=== PATIENT | female | born 1995 | race Caucasian/White ===

== ENCOUNTER 2017-02-18 12:24 | Emergency (ER) | payer OTHER ==
[~2017-02-18] VITALS: Ht 157.5 cm; Wt 81.6 kg
[~2017-02-18 12:24] MED LIST: AMOXICOT500 MG PO; PRENATAL PLUS1 TA1 PO; TYLENOL325 MG PO
[2017-02-18 12:44] LABS: URINE BILIRUBIN - DIPSTICK NEGATIVE (NEG); URINE BLOOD NEGATIVE (NEG)
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
[2017-02-18] MEDS ORDERED: ETODOLAC200 MG PO (15:06)
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
[2017-02-18 15:09] VITALS: BP 121/73
== END 2017-02-18 15:10 | disposition home or self-care (01) ==
LOC: ER 12:24
PROVIDERS: Emergency Medicine
DX: S83.91XA Sprain of unspecified site of right knee, initial encounter (principal); S39.012A Strain of muscle, fascia and tendon of lower back, initial encounter; V43.62XA Car passenger injured in collision with other type car in traffic accident, initial encounter; Y92.414 Local residential or business street as the place of occurrence of the external cause